=== PATIENT | female | born 1990 | race Caucasian/White ===

== ENCOUNTER → 2019-12-08 | Outpatient (CLI) | payer OTHER ==
--- NOTE | 2019-12-08 13:36 | CT ---
EXAMINATION TYPE: CT soft tissue neck w con DATE OF EXAM: 12/08/2019 COMPARISON: None HISTORY: Left side mass felt while swallowing, low neck, abnormal thyroid labs CT DLP: 328.2 mGycm CONTRAST: Patient injected with 100 mL of Isovue 300. TECHNIQUE: Axial images at 3 mm thick sections. Reconstructed images in the coronal plane and sagitt al plane are reviewed. FINDINGS: Limited CT sections are obtained the lung apices. The lung apices appear clear. The thyroi d appears normal. No suspicious abnormality within the left neck is identified. CT neck: The torus tubarius and fossa of Rosenmuller are normal. Metal Baler spaces are normal. Para nasal sinuses and mastoid air cells are clear. Parotid glands appear normal and symmetrical. Submandibular glands, are normal. Parapharyngeal spac es are normal. No suspicious adenopathy is evident. The hypopharynx appears within normal limits. Vocal cord level appear symmetrical. Osseous structures are normal. IMPRESSIONS: 1. Normal soft tissue neck.
== END | disposition home or self-care (01) ==
LOC: RADCTMAIN 08:10
PROVIDERS: ATTEND Otolaryngology
DX: R22.1 Localized swelling, mass and lump, neck (principal); R94.6 Abnormal results of thyroid function studies
CPT/HCPCS: 70491; Q9967